=== PATIENT | female | born 1980 | race Caucasian/White ===

== ENCOUNTER 2025-03-21 12:10 | Day surgery (SDC) | payer OTHER ==
[2025-03-21] MEDS ORDERED: Sodium Chloride 0.9(Preservative Free) 10 ML IJ ONE (12:11)
[2025-03-21] MEDS ORDERED: propofoL IV ONE (14:30)
[2025-03-21] MEDS ORDERED: MORPHINE SULFATE 2 MG INJ ONE ×2 (14:55→15:12)
--- NOTE | 2025-03-21 16:52 | XRAY ---
Indication: Left L3-L5 transforaminal KAYLA. Intraoperative fluoroscopy provided for 26 seconds. 4 digital spot image submitted for interpretation demonstrates posterior needle tips projecting over expected left L3 and L4 nerve roots. Small amount of contrast injected for needle tip placement. Correlate with intraoperative findings/report.
[2025-03-21] MEDS ORDERED: Lactated Ringers 1,000 ML IV ONE (17:52)
--- NOTE | 2025-03-21 19:12 | XRAY ---
26 seconds of fluoroscopy were used in surgery for a left L3-L5 transforaminal KAYLA.
== END 2025-03-21 15:30 | disposition home or self-care (01) ==
LOC: SDC-PAIN 12:10
PROVIDERS: ATTEND Psychiatry & Neurology Pain Medicine
DX: M54.16 Radiculopathy, lumbar region (principal)

== ENCOUNTER 2025-04-11 13:06 | Day surgery (SDC) | payer OTHER ==
[2025-04-11] MEDS ORDERED: LIDOCAINE HCL 1% 50 MG/5 ML VL IJ ONE (13:07)
[2025-04-11] MEDS ORDERED: propofoL IV ONE (15:36)
--- NOTE | 2025-04-11 16:56 | XRAY ---
Indication: Left piriformis injection. Intraoperative fluoroscopy provided for 19 seconds. Single digital spot image submitted for interpretation demonstrates posterior needle tip projecting over left piriformis. Small amount of contrast injected for needle tip placement. Correlate with intraoperative findings/report.
--- NOTE | 2025-04-11 16:58 | XRAY ---
19 seconds of fluoroscopy was used in surgery for a left piriformis injection.
[2025-04-11] MEDS ORDERED: Lactated Ringers 1,000 ML IV ONE (17:12)
== END 2025-04-11 16:12 | disposition home or self-care (01) ==
LOC: SDC-PAIN 13:06
PROVIDERS: ATTEND Psychiatry & Neurology Pain Medicine
DX: M79.18 Myalgia, other site (principal)